=== PATIENT | female | born 1980 | race Caucasian/White ===

== ENCOUNTER 2017-11-11 10:57 | Emergency (ER) | payer BC ==
[~2017-11-11] VITALS: Ht 162.6 cm; Wt 59.0 kg
[2017-11-11 11:15] VITALS: BP_SYST 122
[2017-11-11 13:59] VITALS: BP_SYST 115
== END 2017-11-11 13:59 | disposition home or self-care (01) ==
LOC: SED 10:57
DX: J20.9 Acute bronchitis, unspecified (principal); J45.909 Unspecified asthma, uncomplicated; R03.0 Elevated blood-pressure reading, without diagnosis of hypertension; Z88.0 Allergy status to penicillin; Z88.1 Allergy status to other antibiotic agents
CPT/HCPCS: 99283